=== PATIENT | male | born 1965 | race Caucasian/White ===

== ENCOUNTER 2024-02-20 17:00 | Emergency (ER) | payer OTHER, SELFPAY ==
[2024-02-20 17:04] VITALS: BP 178/105
[2024-02-20 17:33] LABS: % Basophils 0.3 % (0-2); % Eosinophils 0.2 % (0-6); % Immature Granulocytes 0.3 % (0-0.5); % Lymphocytes 14.7 % (20.5-51.1); % Monocytes 5.4 % (1.7-9.3); % Neutrophils 79.1 % (42.2-75.2); Absolute Lymphocytes 1.4 10^3/uL (1.2-3.4); Absolute Monocytes 0.5 10^3/uL (0.1-0.6); Absolute Neutrophils 7.3 10^3/uL (1.4-6.5); Hematocrit 47.3 % (39.0-52.0); Mean Corp Hgb Conc. 33.8 g/dL (33.0-37.0); Mean Corpuscular Hgb 28.3 pg (27.0-31.0); Mean Corpuscular Volume 83.7 fL (80.0-94.0); Mean Platelet Volume 9.9 fL (7.4-10.4); Nucleated Red Blood Cells % 0 % (-); Platelet Count 176 10^3/uL (130-400); Red Blood Cell Count 5.65 10^6/uL (4.70-6.10); Red Cell Dist. Width 14.3 % (11.5-14.5); White Blood Cell Count 9.2 10^3/uL (4.8-10.8)
[2024-02-20 17:40] LABS: Urine Albumin Negative (Neg - Trace); Urine Bilirubin Negative (Negative); Urine Character Clear (Clear); Urine Color Yellow; Urine Glucose Negative (Negative); Urine Ketone Negative (Negative); Urine Leukocyte Negative (Negative); Urine Nitrite Negative (Negative); Urine Occult Blood Negative (Negative); Urine Specific Gravity 1.015 (<1.030); Urine Urobilinogen Negative (Neg - 1+)
[2024-02-20 17:54] LABS: ALT (SGPT) 25 U/L (0-50); AST (SGOT) 34 U/L (17-59); Albumin 4.5 g/dl (3.5-5.0); Alkaline Phosphatase 74 U/L (38-126); Blood Urea Nitrogen 22 mg/dl (9-20); Calcium 9.7 mg/dl (8.4-10.2); Carbon Dioxide 29 mmol/L (22-30); Chloride 103 mmol/L (98-107); Glucose 92 mg/dl (70-99); Potassium 3.9 mmol/L (3.5-5.1); Sodium 140 mmol/L (135-145); Total Bilirubin 0.7 mg/dl (0.2-1.3); Total Protein 6.7 g/dl (6.3-8.2); eGFR > 60.00
--- NOTE | 2024-02-20 18:16 | ED.GENMED ---
History of Present Illness
General
Chief Complaint: Back Pain
Source: patient
Exam Limitations: none
Time Seen by Provider: 02/20/24 17:56
Travel History
Have you had any contact with someone who has COVID-19?: No
Do you have any symptoms of coronavirus? Fever > 100 degrees, chills, cough, shortness of breath, sore throat, loss of taste or smell, muscle aches, or headache?: No
History of Present Illness
History of Present Illness:
This is a 58 year old male that comes in with c/o right sided back pain. States that he awoke this morning with right sided back pain around his kidney. States that he gets Prostatitis symptoms frequently and he normally get in a Hot tub and it goes
away. States that today he felt like there was some resistance when he was trying to urinate. States that he was having pain and he tried to go to the BR but was unable and he had to then lay down on the floor as the pain was so bad. States that he
was nauseate. State that he went to and they told him he had blood in his urine and his urine was very dark. States that he was given Cipro which he took one tablet today. States that he did have some burning with urination. Denies any fever,
chills, chest pain, SOB, abd pain, vomiting, diarrhea, headache, dizziness.
Past History
Past History
ED Past Medical History: Cancer (Skin Cancer), HTN and Other (Prostatitis)
ED Past Surgical History: Other (Hernia repair)
Social History
Tobacco: Non-smoker
Alcohol: Occasional
Drug: None
Personal:
Living: with family
Review of Systems
Review of Systems
All Other Systems: ROS reviewed and negative except as documented in HPI and ROS
Constitutional: Reports no symptoms; Denies fever or chills
EENT: Reports no symptoms
Respiratory: Reports no symptoms; Denies cough or trouble breathing
Cardiac: Reports no symptoms; Denies chest pain
ABD/GI: Reports nausea; Denies abdominal pain, vomiting or diarrhea
: Reports dysuria and difficulty voiding; Denies frequency or urgency
Musculoskeletal: Reports no symptoms
Skin: Reports no symptoms
Neurological: Reports no symptoms; Denies dizzy or headache
Psychiatric: Reports no symptoms
Phy Exam
General Physical Exam
General Presentation: no apparent distress
General age: appears stated age
General Skin: warm and dry
General Habitus: normal
General Mental: alert
General Hydration: appears well hydrated
ENT Exam
ENT Exam: TM's normal, pharynx normal and neck supple
Eye Exam
Eye Exam: EOMI
Cardiovascular Exam
Cardiovascular Exam: regular rate/rhythm, no edema, no murmur and normal peripheral pulses
Pulmonary Exam
Pulmonary Exam: lungs clear, no respiratory distress, no rales, chest non tender, no crackles, no rhonchi, no wheezing and no cough
Gastrointestinal Exam
Gastrointestinal Exam: normal bowel sounds, non tender, soft, no organomegaly, no pulsatile mass, non distended and cva tenderness (Right Sided)
Musculoskeletal Exam
Musculoskeletal Exam: full ROM and no edema
Skin Exam
Skin Exam: normal color, warm/dry, no rash and no petechia
Psychiatric Exam
Psychiatric Exam: normal mood/affect
Course
Orders/Labs/Results
Orders:
Orders
02/20/24 17:29
Complete Blood Count/With Diff Urgent
Comprehensive Metabolic Panel Urgent
Urinalysis Reflex To Culture Urgent
Date Specimen was Collected: 02/20/24
Time Specimen was Collected: 17:07
02/20/24 18:16
CT Abd/pel Without Iv Or Oral Urgent
Comment:
Reason For Exam: Right back flank pain
Abnormal Lab Results
02/20/24
17:29
Absolute Neuts (auto) 7.3 H 10^3/uL
(1.4-6.5)
Neutrophils % 79.1 H %
(42.2-75.2)
Lymphocytes % 14.7 L %
(20.5-51.1)
BUN 22 H mg/dl
(9-20)
02/20/24 17:29
02/20/24 17:29
Dehydration, Urine negative for infection or blood
Vital Signs
Initial and Last Documented VS:
Initial Vital Signs
Temp Pulse Resp BP Pulse Ox
98.1 F 79 20 178/105 99
02/20/24 17:04 02/20/24 17:04 02/20/24 17:04 02/20/24 17:04 02/20/24 17:04
Last Documented Vital Signs
Temp Pulse Resp BP Pulse Ox
98.1 F 79 20 178/105 99
02/20/24 17:04 02/20/24 17:04 02/20/24 17:04 02/20/24 17:04 02/20/24 17:04
MDM/Problems Addressed
Differential Diagnosis Includes:
UTI, Renal calculus
MDM/Problems Addressed:
This is a 58 year old male that comes in with c/o right sided back pain around his kidney. States that he went to and was told that there was blood in his urine and some WBC's. Patent was told to come to the ER for further evaluation and given
Cipro to take.
Will get labs, Urine and CT scan.
Back to see patient. Explained that he has 1mm stone on the right ureter that is almost to the bladder. Patient states that they did give him Flomax and will have patient take that as prescribed. Patient to strain his urine. Will give prescription
for Toradol and Percocet, Will also give Zofran for any nausea/vomiting. Patient to follow up with the urologist. Patient to return with any concerns,
Chronic conditions affecting care:
NA
Acute Exacerbation and/or Progression of Chronic Illness:
NA
*Radiology
Radiology exam reviewed: radiology read reviewed (CT- There is a 1mm partially obstructing calculus at the intramural portion of the right ureterovesical junction without significant associated hydronephrosis or hydroureter. )
*Pulse Oximetry
Patient hypoxic: no
*EKG
Interpreted by ED Provider?: NA
Rate: EKG- N/A
*[employer]ist Interpretation
Rate: [employer]ist- N/A
*Critical Care Note
Total Time (30-74mins, 75-104mins- exclusive of procedures): Not Applicable
ED Attending Note
-
Portions of this chart may have been created with voice recognition software.� Occasional wrong word or��sound alike� substitutions may have occurred due to the inherent limitations of voice recognition software.
Discharge Plan
Departure
Patient Disposition: Home (Routine Discharge)
Date of Disposition: 02/20/24
Time of Disposition: 19:43
Patient with high blood pressure during this ER visit?: Yes
Condition: Good
Covid-19: Not Applicable
Discharge Problem:
Renal calculus, right
Instructions: Kidney stones in adults, How to Strain Your Urine, BLOOD PRESSURE
Prescriptions:
New
oxycodone-acetaminophen [Percocet] 5-325 mg tablet
1 tab PO Q4HPRN PRN (Reason: pain) Qty: 10 0RF
ondansetron 4 mg tablet,disintegrating
4 mg PO Q8H PRN (Reason: nausea and vomiting) Qty: 7 0RF
ketorolac 10 mg tablet
10 mg PO Q8H PRN (Reason: Pain) Qty: 10 0RF
Rx Instructions:
maximum total duration of 5 days from all oral, intranasal, or parenteral formulations
Referrals:
Claudy Flores MD [Family Provider] -
Lemuel Aguilar Jr., MD [Active] - Follow up in 5-7 days
Activity Restrictions/Additional Instructions:
As discussed, you have a right renal calculus that is almost to the bladder. Please increase your water intake to 8-8oz glasses daily. You have had Three prescriptions sent to your Pharmacy. The first is a narcotic pain medication for severe pain.
Please no driving or alcohol when taking. This will make you tired. The second is for Zofran that will help with any nausea/vomiting. The third is Toradol that will help with pain. You may use this if you don't want to take the narcotic as this will
help decrease any inflammation and allow the stone to pass. Please strain your urine. Follow up with the Urologist in about 5-7 days as they like to give you a change to pass the stone. IF YOU HAVE FEVER, INCREASED OR CHANGING PAIN, OR YOU HAVE ANY
OTHER CONCERNS PLEASE RETURN TO THE EMERGENCY ROOM.
Interventions
Interventions:
*Risk Screen - Suicide Last Done: 02/20/24 19:19
*Neglect/Abuse Screening Last Done: 02/20/24 19:19
*ED COVID-19 Vaccine History Last Done: 02/20/24 17:04
ED-Musculoskeletal Assessment Last Done: 02/20/24 19:19
Discharge Date and Time
Print Language: CHINESE
[2024-02-20] MEDS: PERCOCET 5/325 1 TABLET PO (19:56)
[2024-02-20] MEDS: TORADOL 60 MG IM (19:56)
== END 2024-02-20 20:01 | disposition home or self-care (01) ==
LOC: EMR 17:00
PROVIDERS: Emergency Medicine; EMERGENCY PHYSICIAN Emergency Medicine; FAMILY PHYSICIAN Internal Medicine
DX: N20.2 Calculus of kidney with calculus of ureter (principal); I10 Essential (primary) hypertension; E86.0 Dehydration; Z85.828 Personal history of other malignant neoplasm of skin
CPT/HCPCS: 99284; 96372; 74176; 80053; 81003; 85025

== ENCOUNTER → 2025-03-08 06:26 | Outpatient (REF) | payer OTHER, SELFPAY | LOC: RAD 06:26 | PROVIDERS: ATTENDING PHYSICIAN Internal Medicine | DX: E78.00 Pure hypercholesterolemia, unspecified (principal) | CPT/HCPCS: 93880 ==